=== PATIENT | female | born 1985 | race Caucasian/White ===

== ENCOUNTER 2017-08-11 17:14 | Emergency (ER) | payer OTHER ==
[~2017-08-11] VITALS: Ht 160 cm; Wt 102.7 kg
[2017-08-11] MEDS ORDERED: MOTRIN800 MG PO (18:33)
[2017-08-11] MEDS ORDERED: NORCO 7.5/321 TABLET PO (18:33)
[2017-08-11 18:54] VITALS: BP 131/86
== END 2017-08-11 18:56 | disposition home or self-care (01) ==
LOC: EME 17:14
DX: S82.831A Other fracture of upper and lower end of right fibula, initial encounter for closed fracture (principal); M23.91 Unspecified internal derangement of right knee; W18.39XA Other fall on same level, initial encounter; Y92.009 Unspecified place in unspecified non-institutional (private) residence as the place of occurrence of the external cause
CPT/HCPCS: 73564; 99281; 99284